=== PATIENT | female | born 1980 | race American Indian/Alaskan Native ===

== ENCOUNTER 2017-01-19 00:13 | Emergency (ER) | payer SELFPAY ==
[2017-01-19 01:14] VITALS: BP 116/79
[2017-01-19 01:57] LABS: Basophils % (Auto) 0.4 % (0.0-1.8); Eosinophils % (Auto) 1.1 % (0.0-4.3); Hematocrit 29.9 % (30.3-42.9); Hemoglobin 9.7 gm/dl (10.1-14.3); Mean Corpuscular HGB Conc 32 % (30-34); Mean Corpuscular Volume 80 fl (79-97); Platelet Count 300 K/mm3 (140-440); Red Blood Count 3.75 M/mm3 (3.65-5.03); Red Cell Distribution Width 14.8 % (13.2-15.2); White Blood Count 4.1 K/mm3 (4.5-11.0)
[2017-01-19 01:59] LABS: Mean Corpuscular Hemoglobin 26 pg (28-32)
[2017-01-19 02:19] LABS: Anion Gap 17 mmol/L; BUN/Creatinine Ratio 11.11; Blood Urea Nitrogen 10 mg/dL (7-17); Carbon Dioxide 24 mmol/L (22-30); Chloride 104.1 mmol/L (98-107); Glucose 118 mg/dL (65-100); Potassium 3.6 mmol/L (3.6-5.0); Sodium 141 mmol/L (137-145)
--- NOTE | 2017-01-20 01:40 | ED Elopement Review ---
ED Pt Elopement review - Results review Lab results: Laboratory Tests 01/19/17 01/19/17 01:35 01:35 WBC 4.1 L RBC 3.75 Hgb 9.7 L Hct 29.9 L MCV 80 MCH 26 L MCHC 32 RDW 14.8 Plt Count 300 Lymph % (Auto) 37.0 H [facility] % (Auto) 9.9 H Eos % (Auto) 1.1 Baso % (Auto) 0.4 Lymph # 1.5 [facility] # 0.4 Eos # 0.0 Baso # 0.0 Seg Neutrophils % 51.6 Seg Neutrophils # 2.1 Sodium 141 Potassium 3.6 Chloride 104.1 Carbon Dioxide 24 Anion Gap 17 BUN 10 Creatinine 0.9 Estimated GFR > 60 BUN/Creatinine Ratio 11.11 Glucose 118 H Calcium 9.0 Troponin T < 0.010 - Call Back decision Pt Call Back Decision: No action required
== END 2017-01-19 01:38 | disposition left against medical advice (07) ==
LOC: ED 00:13
DX: R06.02 Shortness of breath (principal); R07.9 Chest pain, unspecified; R53.1 Weakness; I10 Essential (primary) hypertension; D64.9 Anemia, unspecified; Z88.8 Allergy status to other drugs, medicaments and biological substances; Z88.6 Allergy status to analgesic agent; Z53.21 Procedure and treatment not carried out due to patient leaving prior to being seen by health care provider
CPT/HCPCS: 36415; 80048; 84484; 85025; 93005; 93010